=== PATIENT | female | born 1975 | race Two or more races ===

== ENCOUNTER 2024-10-11 05:40 | Day surgery (SDC) | payer MEDICAID, SELFPAY ==
--- NOTE | 2024-10-10 11:18 | EKG_ITS ---
[facility] Test Date: 2024-10-10 Pat Name: JONATHAN GUTHRIE Department: Room: - Gender: Female Kiln [employer]er: MARLENY : 1975 Requested By: Russell Kenyon Order Number: [id number] Reading MD: Russell Kenyon Measurements Intervals [place] Rate: 65 P: 47 SD: 163 QRS: 52 QRSD: 106 T: 14 QT: 405 QTc: 422 Interpretive Statements SINUS RHYTHM Compared to ECG 12/17/2020 11:42:09 Sinus bradycardia no longer present Sinus arrhythmia no longer present /store/S0/[id number]
[2024-10-10 11:22] VITALS: BMI 31.7
[2024-10-10 11:59] LABS: Basophils # (Auto) 0.1 Thou/mm3 (0.0-0.2); Basophils % (Auto) 1 % (0-2.5); Eosinophils # (Auto) 0.1 Thou/mm3 (0.0-0.5); Eosinophils % (Auto) 1 % (0-10); Hematocrit 40.7 % (36.0-46.0); Hemoglobin 14.3 g/dL (12.0-16.0); Immature Granulocytes % (Auto) 0 % (0-0); Immature Granulocytes Auto 0.02 Thou/mm3 (0.00-0.00); Lymphocytes # (Auto) 2.5 Thou/mm3 (1.0-4.8); Lymphocytes % (Auto) 31 % (10-50); Mean Corpuscular HGB Conc 35.1 g/dl (31.0-37.0); Mean Corpuscular Hemoglobin 32.5 pg (25.0-35.0); Mean Corpuscular Volume 93 fL (80-100); Monocytes # (Auto) 0.6 Thou/mm3 (0.0-0.8); Monocytes % (Auto) 7 % (0-12); Neutrophils % (Auto) 60 % (37-80); Nucleated Red Blood Cell % 0 /100 WBC (0); Platelet Count 262 Thou/mm3 (140-440); White Blood Count 8.3 Thou/mm3 (3.6-11.0)
[2024-10-10 12:07] LABS: Partial Thromboplastin Time 26.4 Seconds (22.0-36.0); Prothrombin Time 10.6 Seconds (9.0-12.2)
[2024-10-10 12:08] LABS: Anion Gap 4 (7-16); BUN/Creatinine Ratio 15 Ratio (12-20); Blood Urea Nitrogen 15 mg/dL (9-23); Calcium 8.9 mg/dL (8.3-10.6); Carbon Dioxide 28.2 mMol/L (20.0-31.0); Chloride 106 mMol/L (98-107); Glucose 104 mg/dL (74-106); Osmolality,Calculated 276 (275-295); Potassium 4.2 mMol/L (3.4-5.1); Sodium 138 mMol/L (136-145); eGFR > 60 See Note
[2024-10-10 12:15] LABS: COVID-19 Antigen (In-House) Negative (Negative)
--- NOTE | 2024-10-10 14:31 | ESHP_ITS ---
RE: JONATHAN GUTHRIE : 1975 DATE OF ADMISSION: 10/11/2024 HISTORY OF PRESENT ILLNESS: The patient presented to me earlier with history of pain and numbness in the right hand on outer four digits. The patient came to my office on 10/10/2024 for detailed preop history and physical examination. The patient has got numbness and weakness. Beside that the patient has burning and tingling sensation. Symptoms and signs were consistent with right carpal tunnel compression. Her right carpal tunnel release was performed in 2019, but it appears to have recurred. Nerve conduction studies and EMG revealed severe carpal tunnel compression. It is interfering with activities of daily living and quality of life. Intensity of discomfort is 8. PAST MEDICAL HISTORY: There is no diabetes, high blood pressure, asthma, seizure, chest pain, myocardial infarction, or bleeding disorder. PAST SURGICAL HISTORY: Status post right carpal tunnel release in 2019. DRUG HISTORY: The patient is taking, 1. Nortriptyline. 2. Pregabalin. ALLERGIES: NIL KNOWN. FAMILY HISTORY AND SOCIAL HISTORY: Noncontributory. PHYSICAL EXAMINATION: GENERAL: Normal built lady. VITAL SIGNS: Pulse 88 per minute, blood pressure is 114/80. Neck: Soft, supple. No masses felt. Trachea is centrally placed. CARDIOVASCULAR SYSTEM: First and second heart sound normal. No murmur heard. RESPIRATORY SYSTEM: Bilateral vesicular breath sounds. CHEST: Clear. ABDOMEN: Soft. No masses felt. Bowel sounds present. BREASTS: Not indicated in this case. RECTAL: The patient is advised to see the family physician for rectal examination. EXTREMITIES: Right hand examination reveals a faint scar, which is well healed up. There is decreased sensation outer four digits. Tinel's signs and Phalen signs are positive. DIAGNOSTIC DATA: Nerve conduction studies and EMG confirm severe carpal tunnel compression. ASSESSMENT AND RECOMMENDATIONS: Since the patient is symptomatic, therefore, right carpal tunnel release was discussed and advised. Risks with anesthesia was explained and that includes, but not limited to reaction to anesthetic agents, cardiac arrest, or rarely it might be fatal. Risks with the operation includes infection and if that happens, the patient may need further surgical procedure. There is a risk of recurrence and that usually happens with the scar formation. No guarantees given regarding the outcome of the procedure and/or relief of symptoms. Accordingly, the patient wants to proceed with surgery. Surgery is booked 10/11/2024. Appropriate lab work was done. DT: 12:20:28 TT: 14:30:00 Ref: [id number] - TID: [id number]
[2024-10-11] VITALS (8 sets, daily range): BP systolic 99–126; BP diastolic 58–92; PULSE 66–84; RESP 12–20; TEMP 36.3–36.9; O2SAT 95–100; BMI 31.4
[2024-10-11] MEDS: RINGERS LACTATED 1000 ML 1,000 ML 20 ML IV (06:24)
--- NOTE | 2024-10-11 08:46 | SUR.PHASEI ---
0828 Patient arrived to recovery resting comfortably in [facility], drowsy and talking with staff, breathing unlabored, vital signs stable, denies pain, dressing intact to right wrist; sutures, adaptic soaked in betadine, fluffs, bias roll with silk tape, no bleeding noted, lung sounds clear upon auscultation, left radial pulses present when palpated, report received from Landry FREY and Dr. Diaz
--- NOTE | 2024-10-11 08:46 | SUR.PHASEI ---
0851 Patient arrived to recovery resting comfortably in [facility], drowsy and talking with staff, breathing unlabored, vital signs stable, denies pain, dressing intact to right wrist; sutures, adaptic soaked in betadine, fluffs, bias roll with silk tape, no bleeding noted, lung sounds clear upon auscultation, bilateral radial pulses present when palpated, report received from Landry FREY and Dr. Diaz
--- NOTE | 2024-10-11 08:51 | ESOP_ITS ---
Date of Procedure 10/11/24 Pre Op Diagnosis Severe right carpal tunnel compression Post Op Diagnosis Same Procedure Right carpal tunnel release Findings Very thick scar was compressing on the median nerve Procedure Description Patient was given general endotracheal anesthesia. Once satisfactory anesthesia achieved a tourniquet was placed on right upper arm. Following that the part was thoroughly prepped and draped. After using Esmarch the tourniquet pressure was raised to 250 mmHg Skin incision was made over the previously placed eschar. The length of the incision was about 2 inches long or so. Deeper dissection was carried out. The soft tissue was incised. The palmar aponeurosis was incised in the line of his skin incision. Following that very thick scar was encountered. That was connecting to the deep carpal ligament. Another incision was made in the scar tissue. A gentle stab incision was made. The median nerve was present just beneath that. A Reserve was introduced between the median nerve and the scar tissue. The scar tissue was incised all along its vertical length. At the end of the procedure the median nerve was thoroughly decompressed and blood vessels could be seen running over rate. Wound was irrigated with antibiotic solution every 4 to 5 minutes Closure was done with the help of 3-0 Prolene in an interrupted fashion. 10 mL of quarter percent Marcaine was injected at the skin incision site After cleaning the wound with hydrogen peroxide solution a sterile dressing was applied and tourniquet pressure was released Patient tolerated procedure very well. Estimated blood loss 1 mL Anesthesia GETA Pathology / specimen None Estimated Blood Loss 1 Surgeon Russell Pearson MD Surgical Staff Operation Date: 10/11/24 07:30 Case Staff Anesthesiologist: Mac Diaz
[2024-10-11] MEDS: fentaNYL CIT INJ 50 mCg/ML AMP 2ML IV (09:07)
--- NOTE | 2024-10-11 09:40 | SUR.PHASEII ---
0940 Patient meets discharge criteria from recovery, awake and alert, breathing unlabored, vital signs stable, per patient her pain is tolerable, dressing intact; no bleeding noted, patient provided an arm sling for support, patient eating ice chips; tolerating well, patient assisted with dressing into her clothing by this ad writer, discharge instructions given to patient and patients friend over the phone due to friend having a small child, discharge instructions signed at car side by patients friend, patient given all her belongings prior to discharge, transported via wheelchair and left in a private vehicle.
== END 2024-10-11 09:40 | disposition home or self-care (01) ==
PROVIDERS: Anesthesiology; PCP Internal Medicine; Referring Provider Orthopaedic Surgery; Visit Provider Orthopaedic Surgery
PROC: (CPT 64721; principal; 2024-10-11 07:30)
DX: G56.01 Carpal tunnel syndrome, right upper limb (principal); Z01.810 Encounter for preprocedural cardiovascular examination
CPT/HCPCS: 64721; 36415; 80048; 85025; 85610; 85730; 87811; 93005; A4217; A4649; J1100; J1580; J2371; J2405; J2704; J3010; J3490; J7120; J0665

== ENCOUNTER → 2025-08-29 | Outpatient (CLI) | payer MEDICAID, SELFPAY ==
--- NOTE | 2025-08-29 16:30 | XR_ITS ---
Examination: MRI brain without intravenous contrast. Date and time of exam: August 29, 2025, 1716 hours INDICATIONS: Worsening headaches blurred vision beginning 6 months ago Technique: Multiple axial and sagittal images of the brain obtained. Siemens high-resolution 1.5 Roberta short bore scanners utilized. Sagittal sections, T1-weighted, TR 500, TE 14, are performed. Axial sections proton-density and T2-weighted have been obtained. Inversion recovery axial images, TR 9, 260, TE 111, TI 2500. Diffusion weighted images, axial sections, TR 4800, TE 128, B value 1000 Axial sections, ADC map, TR 4800, TE 128 Findings: Enlargement of the sella turcica is not present. The optic chiasm and infundibular are not remarkable. Prepontine and interpeduncular cisterns are not enlarged. There is no localized enlargement of the medulla or clint. Fourth ventricle and cerebellar tonsils appear normal in position. No subacute area of hemorrhage density is seen. Mass in the cerebellopontine angle region is not evident. Globes symmetrical. Orbital musculature including medial lateral rectus muscles do not exhibit abnormality. Diffusion-weighted images demonstrate no focus of restricted diffusion. Increased white matter signal not seen Mass effect upon the ventricular system is not identified. Impression: Negative for acute hemorrhage, mass effect or midline shift No acute infarct No MR findings diagnostic for demyelinating disease
== END | disposition home or self-care (01) ==
LOC: SMRI 16:34
PROVIDERS: PCP Internal Medicine
DX: G43.909 Migraine, unspecified, not intractable, without status migrainosus (principal)
CPT/HCPCS: 70551